=== PATIENT | female | born 1990 | race Caucasian/White ===

== ENCOUNTER 2022-10-21 21:31 | Emergency (ER) | payer BC ==
[~2022-10-21] VITALS: Ht 172.7 cm; Wt 102.3 kg
[2022-10-21] MEDS ORDERED: normal saline 1000ml 1,000 ML IV ONE ×2 (22:10→23:45)
[2022-10-21] MEDS ORDERED: ondansetron/PF 4mg/2ml inj IV ONE (22:20)
[2022-10-21 22:22] LABS: BASOPHILS % (AUTO) 0.1 % (0-1); EOSINOPHILS # (AUTO) 0.1 X10'3 (0-0.9); EOSINOPHILS % (AUTO) 0.5 % (0-6); HEMATOCRIT 45.9 % (35.0-45.0); HEMOGLOBIN 15.2 g/dl (12.0-16.0); LYMPHOCYTES # (AUTO) 2.2 X10'3 (1.1-4.8); LYMPHOCYTES % (AUTO) 15.2 % (21-51); MEAN CORPUSCULAR HEMOGLOBIN 29.4 PG (27.0-31.0); MEAN CORPUSCULAR HGB CONC 33.2 g/dL (33.0-36.5); MEAN CORPUSCULAR VOLUME 88.5 FL (78-98); MEAN PLATELET VOLUME 8.8 FL (7.4-10.4); MONOCYTES # (AUTO) 0.9 X10'3 (0-0.9); MONOCYTES % (AUTO) 6.7 % (2-12); NEUTROPHILS % (AUTO) 77.5 % (42-75); PLATELET COUNT 319 X10'3 (140-440); RED BLOOD COUNT 5.18 X10'6 (4.20-5.60); RED CELL DISTRIBUTION WIDTH 14.1 % (11.5-14.5); WHITE BLOOD COUNT 14.2 X10'3 (4.5-11.0)
[2022-10-21 22:28] LABS: ALANINE AMINOTRANSFERASE 38 U/L (12-78); ALBUMIN 3.8 G/DL (3.4-5.0); ALKALINE PHOSPHATASE 84 IU/L (46-116); ANION GAP 12 (8-16); ASPARTATE AMINO TRANSFERASE 24 U/L (10-37); BILIRUBIN,TOTAL 0.4 MG/DL (0.1-1.0); BLOOD UREA NITROGEN 16 MG/DL (7-18); BUN/CREATININE RATIO 18.2 (10.0-20.0); CALCIUM 9.1 MG/DL (8.5-10.1); CHLORIDE 104 MMOL/L (99-107); CREATININE 0.88 MG/DL (0.40-0.90); GLUCOSE 120 MG/DL (70-104); POTASSIUM 3.6 MMOL/L (3.5-5.1); SODIUM 142 MMOL/L (135-145); TOTAL CARBON DIOXIDE 26.3 MMOL/L (24-32); TOTAL PROTEIN 7.8 G/DL (6.4-8.2); eGFR 75 ML/MIN
[2022-10-21 22:44] LABS: D-DIMER < 0.19 MG/L FEU (0-0.50)
[2022-10-21 22:50] LABS: BETA HCG,QUANTITATIVE < 1.0 mIU/ml; LIPASE 81 U/L (73-393)
[2022-10-21 23:44] LABS: CLARITY,URINE CLOUDY (Clear); GLUCOSE, URINE NEGATIVE (Neg); KETONES,URINE NEGATIVE (Neg); LEUKOCYTE ESTERASE ,URINE LARGE (Neg); NITRITES, URINE NEGATIVE (Neg); OCCULT BLOOD,URINE MODERATE (Neg); PH,URINE 6.5 (4.8-8.0); PROTEIN,URINE 30 mg/dl (Neg); UROBILINOGEN,URINE 0.2 E.U/dL (0.2-1.0)
[2022-10-21 23:50] LABS: COLOR,URINE DARK YELLOW (Yellow); UA COLLECTION TYPE CLN CATCH MIDSTREAM
[2022-10-21 23:51] LABS: BACTERIA,URINE 3+ /HPF (Neg); SQUAMOUS EPITHELIAL CELL,UR FEW /LPF (FEW); WBC CLUMPS,URINE MODERATE /HPF (NEGATIVE); WBC,URINE TNTC /HPF (0-4)
[2022-10-22] MEDS ORDERED: cephalexin 250mg capsule PO ONE (01:05)
[2022-10-22] MEDS ORDERED: CEPH-585 PO (01:07)
[2022-10-22] MEDS ORDERED: ONDA4TAB12 PO (01:07)
[2022-10-22 01:33] VITALS: BP 138/82
== END 2022-10-22 01:35 | disposition home or self-care (01) ==
LOC: ER 21:32
DX: R55 Syncope and collapse (principal); Z20.822 Contact with and (suspected) exposure to COVID-19; N39.0 Urinary tract infection, site not specified; Z91.09 Other allergy status, other than to drugs and biological substances
CPT/HCPCS: 36415; 70450; 71045; 80053; 81001; 82948; 83690; 83880; 84484; 84702; 85025; 85379; 87088; 87502; 87503; 87811; 93005; 96361; 96374; 99285; J2405; J7030

== ENCOUNTER 2023-07-11 12:35 | Emergency (ER) | payer BC ==
[~2023-07-11 12:35] MED LIST: ONDA4TAB12 PO
[2023-07-11 14:05] LABS: BILIRUBIN,URINE NEGATIVE (Neg); CLARITY,URINE CLOUDY (Clear); COLOR,URINE STRAW (Yellow); GLUCOSE, URINE NEGATIVE (Neg); KETONES,URINE NEGATIVE (Neg); LEUKOCYTE ESTERASE ,URINE LARGE (Neg); NITRITES, URINE POSITIVE (Neg); OCCULT BLOOD,URINE MODERATE (Neg); PROTEIN,URINE TRACE mg/dl (Neg); UROBILINOGEN,URINE 0.2 E.U/dL (0.2-1.0)
[2023-07-11 14:17] LABS: UA COLLECTION TYPE CLN CATCH MIDSTREAM
[2023-07-11] MEDS ORDERED: sulfamethoxazole/trimethoprim DS (800/160mg) tablet PO ONE (14:40)
[2023-07-11] MEDS ORDERED: CEPH250T PO (14:51)
[2023-07-11 14:54] LABS: WBC,URINE TNTC /HPF (0-4)
[2023-07-11 14:55] LABS: BACTERIA,URINE 2+ /HPF (Neg); SQUAMOUS EPITHELIAL CELL,UR FEW /LPF (FEW); WBC CLUMPS,URINE MODERATE /HPF (NEGATIVE)
[2023-07-11 14:57] VITALS: BP 165/89; PULSE 112; RESP 20; TEMP 99.2; O2SAT 100
[2023-07-11] MEDS ORDERED: ONDA4TAB12 PO (22:58)
== END 2023-07-11 15:00 | disposition home or self-care (01) ==
LOC: ER 12:35
DX: N39.0 Urinary tract infection, site not specified (principal); Z88.8 Allergy status to other drugs, medicaments and biological substances; Z79.899 Other long term (current) drug therapy
CPT/HCPCS: 81001; 87077; 87088; 87186; 99283

== ENCOUNTER 2023-07-11 22:35 | Emergency (ER) | payer BC ==
[~2023-07-11] VITALS: Ht 165.1 cm; Wt 122.0 kg
[~2023-07-11 22:35] MED LIST changes: +CEPH250T PO
[2023-07-11 22:37] VITALS: BP 173/93; PULSE 102; RESP 18; TEMP 98.2; O2SAT 99
[2023-07-11] MEDS ORDERED: ONDA4TAB12 PO (22:58)
[2023-07-11] MEDS ORDERED: ondansetron 4mg rapidly disintigrating tab PO ONE (23:00)
== END 2023-07-11 23:10 | disposition home or self-care (01) ==
LOC: ER 22:36
DX: Z00.00 Encounter for general adult medical examination without abnormal findings (principal); N39.0 Urinary tract infection, site not specified; Z79.2 Long term (current) use of antibiotics; Z79.899 Other long term (current) drug therapy
CPT/HCPCS: 99283